=== PATIENT | female | born 1995 | race Caucasian/White ===

== ENCOUNTER 2016-06-15 09:17 | Emergency (ER) ==
[2016-06-15 09:33] VITALS: BP 128/81
--- NOTE | 2016-06-15 09:53 | PROVIDER DOCUMENTATION ---
HPI-Rash/Wound/ReCheck - General Chief Complaint: Rash Stated Complaint: rash Time Seen by Provider: 06/15/16 09:50 Source: patient Unable to obtain history due to:: urgency Allergies/Adverse Reactions: Allergies Allergy/AdvReac Type Severity Reaction Status Date / Time histex Allergy ANAPHYLAXIS Uncoded 10/23/15 23:46 Home Medications: Home Medication List Medication Instructions Recorded Confirmed Last Taken Type Acyclovir [Zovirax] 400 mg PO TID #21 tablet 06/15/16 Unknown Rx Ibuprofen [Motrin] 800 mg PO Q8H PRN PRN #20 tablet 06/15/16 Unknown Rx - History of Present Illness-Dermatology Location: reports: face (left frontal area) Quality: reports: burning, painful Severity: reports: moderate Onset/Duration: reports: 24 hours ago Timing: reports: still present Identifiable cause?: No Locality of Occurance: Home Similar Symptoms Previously?: Yes ("I WASN'T SURE.") Recently seen or treated by another doctor?: No Review of Systems - Adult - REVIEW OF SYSTEMS - ADULT Constitutional: reports: see HPI Eyes: reports: no symptoms reported Ears, Nose, Mouth & Throat: reports: no symptoms reported Cardiovascular: reports: no symptoms reported Respiratory: reports: no symptoms reported Gastrointestinal: reports: no symptoms reported Genitourinary: reports: no symptoms reported Musculoskeletal: reports: no symptoms reported Integumentary: reports: rash (VESICULAR RASH TO LEFT FOREHEAD) Neurological: reports: no symptoms reported Psychiatric: reports: no symptoms reported Endocrine: reports: no symptoms reported Hematologic/Lymphatic: reports: no symptoms reported Allergic/Immunologic: reports: other (VESICULAR RASH LEFT FOREHEAD) Past History - Adult - PAST MEDICAL HISTORY-ADULT Review of Records: reports: Old Records Reviewed Major Childhood Illnesses: reports: Varicella Cardiovascular: reports: denies history Respiratory: reports: denies history Gastrointestinal: reports: denies history Obstetrical/Gynecological: reports: denies history Genitourinary: reports: denies history Musculoskeletal: reports: denies history Neurological: reports: denies history Psychiatric: reports: denies history Endocrine/Immune: reports: denies history Other Conditions: reports: denies history - PRIOR SURGERIES/PROCEDURES Surgical/Procedure History: reports: none - PRIOR HOSPITALIZATIONS Prior Hospitalizations: reports: none - IMMUNIZATION STATUS Childhood Immunizations: See Nurse Assessment - FAMILY HISTORY Family History: reviewed, not pertinent - SOCIAL HISTORY Smoking: denies Substance Use: none/never Alcohol Use Frequency: occasionally Living Situation: friend Physical Exam-General - PHYSICAL EXAM-ADULT Initial Vital Signs Reviewed: Yes - CONSTITUTIONAL General Appearance: appears well - EYES Eyes: PERRL/EOMI - HEAD, EARS, NOSE, MOUTH & THROAT HENMT: normocephalic/atraumatic - NECK Neck: non-tender - RESPIRATORY Respiratory: chest non-tender - CARDIOVASCULAR Cardiovascular: normal peripheral pulses - CHEST (BREASTS) Chest/Breast: deferred - LYMPHATIC Lymphatic: no adenopathy - MUSCULOSKELETAL Back Exam: normal inspection - SKIN Integumentary: zoster-like rash (LEFT FRONTAL AREA) - NEUROLOGIC Neurologic: grossly normal Departure - Departure Time of Disposition Order: 09:56 DIAGNOSIS: Shingles Qualifiers: Herpes zoster complications: without complications Qualified Code(s): B02.9 - Zoster without complications Disposition: HOME 01 Certified Medical Emergency: Emergent Condition: Stable Prescriptions: Ibuprofen [Motrin] 800 mg PO Q8H PRN PRN #20 tablet PRN Reason: Pain Acyclovir [Zovirax] 400 mg PO TID #21 tablet Referrals: Robin Duffy [NON-STAFF] - Instructions: Shingles
== END 2016-06-15 10:46 | disposition home or self-care (01) ==
LOC: ED 09:17
DX: B02.9 Zoster without complications (principal); R21 Rash and other nonspecific skin eruption